=== PATIENT | female | born 1975 | race Caucasian/White ===

== ENCOUNTER 2016-10-18 15:27 | Emergency (ER) | payer SELFPAY ==
[~2016-10-18] VITALS: Ht 167.6 cm; Wt 48.5 kg
[~2016-10-18 15:27] MED LIST: BACTRIM DS 8001 TAB PO; CIPRO 500MG TA500 MG PO; ESTRACE 2MG. TAB2 MG PO; FLEXERIL10 M1 PO; FLEXERIL10 MG PO; IBU-8800 MG PO; LORTAB 5/500 501 TAB PO; PYRIDIUM 200MG200 MG PO; TYLENOL W/CODEI1 TA2 PO
--- NOTE | 2016-10-18 16:19 | Emergency Room Report ---
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 N Clinical Suspician of Infection? N Mental Status: 1 - Regular (Normal Baseline) Sepsis Risk:Low Sepsis Risk Have you (or family members/close friends) recently traveled outside the [place]? N If Yes, where/when: Have you had exposure to infectious disease within the past month? TB? Other? Specify: Comment The patient is brought in by police for medical clearance. She states that she took a single 10 mg Valium, not prescribed to her, and smoked one half of a joint this morning at 8 AM. She denies any other drug use, [id number] medication, or prescription medications. She feels perfectly fine now. She says she took Valium to get some sleep because she worked a double shift yesterday. She says she does not habitually use Valium. No recent illness. ALLERGIES Coded Allergies: butorphanol (10/18/16) meperidine (10/18/16) morphine (10/18/16) Home Medications Active Scripts Ibuprofen (Ibuprofen 800mg) 800 MG PO TID 5 Days Prov: 10/15/09 Reported Medications Estradiol (Estrace 2MG. Tablet) 2 MG PO DAILY #30 History Medical History General Angina: No MO: No Hypertension? No Hyperlipidemia? No CHF? No COPD? No Asthma? No Hernia? No CVA? No Seizures? No Diabetes? No UTI? No Stones? No GB Disease: Yes Hepatitis? No Cataracts? No Glaucoma? No MRSA? No TB? No Cancer? 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 No nystagmus. Speech clear. Normal mental status. Eye Exam - bilateral eye normal exam, bilateral eye PERRL, bilateral eye EOMI Ear, Nose, Throat hearing grossly normal, normal ENT inspection Neck normal inspection, non-tender, supple, full range of motion Respiratory Status Yes: trachea midline, chest symmetrical, non tender chest. No: respiratory distress. Lung Sounds bilateral: normal breath sounds, lungs clear. 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 No Progress - 4:24 PM: The patient has been medically evaluated and I find no significant medical condition to prevent disposition to long term. The patient is medically cleared. Departure Departure Disposition DC Home or Self Care(routine) Clinical Impression Primary Impression: Substance abuse Secondary Impressions: Medical clearance for incarceration Condition STABLE Referrals Milton Garcia (Family) ED Critical Care Critical Care No at 1623
--- NOTE | 2016-10-18 16:19 | Emergency Room Report ---
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 N Clinical Suspician of Infection? N Mental Status: 1 - Regular (Normal Baseline) Sepsis Risk:Low Sepsis Risk Have you (or family members/close friends) recently traveled outside the [place]? N If Yes, where/when: Have you had exposure to infectious disease within the past month? TB? Other? Specify: Comment The patient is brought in by police for medical clearance. She states that she took a single 10 mg Valium, not prescribed to her, and smoked one half of a joint this morning at 8 AM. She denies any other drug use, [id number] medication, or prescription medications. She feels perfectly fine now. She says she took Valium to get some sleep because she worked a double shift yesterday. She says she does not habitually use Valium. No recent illness. ALLERGIES Coded Allergies: butorphanol (10/18/16) meperidine (10/18/16) morphine (10/18/16) Home Medications Active Scripts Ibuprofen (Ibuprofen 800mg) 800 MG PO TID 5 Days Prov: 10/15/09 Reported Medications Estradiol (Estrace 2MG. Tablet) 2 MG PO DAILY #30 History Medical History General Angina: No ME: No Hypertension? No Hyperlipidemia? No CHF? No COPD? No Asthma? No Hernia? No CVA? No Seizures? No Diabetes? No UTI? No Stones? No GB Disease: Yes Hepatitis? No Cataracts? No Glaucoma? No MRSA? No TB? No Cancer? No Immunization Hx DT/Tetanus Unknown Surgical Hx Previous Surgery?Y Appendix LAP SALOOMN LSO CALLY OVARIES REMOVED RAHUL GALL BLADDER ER PHYSICIAN Hx LMP menopause Family History Family Hx Diabetes No CAD No Hypertension Yes Hyperlipidemia No Cancer No TB No Social History Smoking Hx Smoker: Current Every Day Smoker Tobacco: Yes Type Cigarettes Packs/day 1 1/2 - 2 Packs Alcohol Alcohol: No Review of Systems All Other Systems Reviewed and Negative Respiratory denies shortness of breath Cardiovascular denies chest pain Physical Exam Vital Signs Vital Signs Date Time Temp Pulse Resp B/P Pulse O2 O2 Flow FiO2 Ox Delivery Rate 10/18 1532 98.1 84 22 150/88 98 General Appearance normal appearance, WD/WN, pupils 4-5 millimeters and reactive. No nystagmus. Speech clear. Normal mental status. Eye Exam - bilateral eye normal exam, bilateral eye PERRL, bilateral eye EOMI Ear, Nose, Throat hearing grossly normal, normal ENT inspection Neck normal inspection, non-tender, supple, full range of motion Respiratory Status Yes: trachea midline, chest symmetrical, non tender chest. No: respiratory distress. Lung Sounds bilateral: normal breath sounds, lungs clear. 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 No Progress - 4:24 PM: The patient has been medically evaluated and I find no significant medical condition to prevent disposition to intermediate. The patient is medically cleared. Departure Departure Disposition DC Home or Self Care(routine) Clinical Impression Primary Impression: Substance abuse Secondary Impressions: Medical clearance for incarceration Condition STABLE Referrals Milton Garcia (Family) ED Critical Care Critical Care No at 1629
[2016-10-18 16:39] VITALS: BP 133/74
== END 2016-10-18 16:40 | disposition home or self-care (01) ==
LOC: ER 15:27
DX: Z02.89 Encounter for other administrative examinations (principal); F12.10 Cannabis abuse, uncomplicated